=== PATIENT | male | born 1950 | race Caucasian/White ===

== ENCOUNTER → 2023-11-10 12:42 | Outpatient (BNVA) | payer MEDICARE, SELFPAY | PROVIDERS: Visit Provider Nurse Practitioner Gerontology | DX: N40.1 Benign prostatic hyperplasia with lower urinary tract symptoms (principal); R31.0 Gross hematuria | CPT/HCPCS: 51798; 81003; 99205 ==

== ENCOUNTER 2023-11-10 18:50 | Outpatient (REF) | payer MEDICARE, SELFPAY ==
[2023-11-10 17:27] LABS: Bilirubin Negative (Negative); Blood Trace-intact (Negative); Clarity Cloudy (Clear); Glucose Negative (Negative); Ketones Negative (Negative); Leukocyte Esterase Large (Negative); Nitrite Negative (Negative); Urobilinogen 0.2 mg/dL (Up to 0.2)
[2023-11-10 17:33] LABS: Bacteria Moderate HPF (Negative); C & S Indicated? C&S Done As Ordered; Casts Negative LPF (Negative); Crystals Negative HPF (Negative); Epithelial Cells Rare HPF (Negative); Mucus Negative (Negative); RBC 0-2 HPF (0-2); WBC >50 HPF (0-5)
== END 2023-11-10 18:51 | disposition home or self-care (01) ==
LOC: LBN 18:50
PROVIDERS: Visit Provider Nurse Practitioner Gerontology
DX: R31.9 Hematuria, unspecified (principal)
CPT/HCPCS: 87077; 81003; 81015; 87086; 87186

== ENCOUNTER → 2023-11-25 12:53 | Outpatient (BNVA) | payer MEDICARE, SELFPAY | PROVIDERS: Visit Provider Nurse Practitioner Gerontology | DX: R31.0 Gross hematuria (principal) | CPT/HCPCS: 81003; 99213 ==

== ENCOUNTER 2023-12-10 08:10 | Day surgery (SDC) | payer MEDICARE, SELFPAY ==
[2023-12-10 08:48] VITALS: BP 119/83; PULSE 60; RESP 16; TEMP 36.5; O2SAT 97
[2023-12-10] MEDS: Lactated Ringers 1,000 ML 80 ML IV (09:05)
--- NOTE | 2023-12-10 09:38 | W.PM.HP.N ---
Date of service: 12/10/23 Time of Service: 09:39 Assessment and Plan Assessment and plan (1) Gross hematuria: Status: Acute (2) UTI (urinary tract infection): Assessment and plan: We will complete his hematuria workup with a cystoscopy. We will be prepared to take a bladder biopsy or do a transurethral resection of any abnormal bladder mucosa. The cystoscopy will also help us determine possible etiologies for his urinary tract infection. History of Present Illness History of Present Illness Chief Complaint: Hematuria Narrative: This is a 73-year-old gentleman who has a history of gross hematuria. He was [place] at the time and took some antibiotics without obtaining a urine culture. When he returned to our area, he had a urine culture that was positive for E Coli. He was again treated with antibiotics. It is not clear if the hematuria was only associated with a UTI or preceded the UTI. He was evaluated with a CT urogram at an outside facility. The kidneys appeared normal but there were changes within the bladder that raised the question of carcinoma in situ. He presents now for cystoscopy and possible biopsy/transurethral resection of bladder tissue. Review of Systems Narrative: No fevers or chills Decreased hearing acuity. No dysphasia No diabetes or thyroid dysfunction No shortness of breath, cough or hemoptysis Hx atrial fibrillation. No chest pain No nausea, vomiting, hepatitis, ulcers, jaundice, diarrhea or constipation No seizures, strokes or peripheral neuropathy No bleeding disorders or anemia No gout PFSH All Active Problems (Updated 12/10/23 @ 09:43 by Talon Coronado MD) Gross hematuria (Acute) Tubular adenoma (Acute) Hearing loss (Acute) Erectile dysfunction (Acute) PSVT (paroxysmal supraventricular tachycardia) (Acute) Hypercholesterolemia (Acute) Medical History (Updated 12/10/23 @ 09:43 by Talon Coronado MD) UTI (urinary tract infection) Hx of hyperlipidemia Hx of hearing loss Hx of fracture of wrist with surgical repair A-fib Surgical History (Updated 12/10/23 @ 08:46 by Juana Perez) History of radiofrequency ablation procedure for cardiac arrhythmia Hx of appendectomy Hx of tonsillectomy Social History Smoking/Tobacco Use Status: Current-Occasional Tobacco Type: pipe Smoking risk assessment performed?: Yes Alcohol Intake: current Alcohol Intake frequency: 0-2 drinks per day Alcohol type: beer, wine and hard liquor Drug use: Never Substance use type: does not use Details: Pipe: t-1, alcohol: t-1, two drinks Housing: house Do you feel safe at home: Yes Do you feel safe in your relationship?: Yes Meds Allergies and Home Medications Allergies Allergy/AdvReac Type Severity Reaction Status Date / Time No Known Allergies Allergy Verified 12/10/23 08:37 Home Medications Medication Instructions Recorded Confirmed Type apixaban 5 mg tablet (Eliquis) 5 mg PO BID 09/08/23 12/09/23 History metoprolol succinate 25 mg 25 mg PO HS 09/08/23 12/10/23 History tablet,extended release 24 hr simvastatin 40 mg tablet 40 mg PO HS 09/08/23 12/10/23 History tamsulosin 0.4 mg capsule 0.4 mg PO DAILY 09/08/23 12/10/23 History dronedarone 400 mg tablet (Multaq) 400 mg PO BID 12/09/23 12/10/23 History Exam Const General: cooperative and no acute distress Neck Neck: supple Resp Effort & Inspection: normal respiratory effort Auscultation: clear to auscultation bilaterally Cardio Rate: regular rate Rhythm: regular rhythm GI Palpation: soft and no masses Neuro General: patient alert, patient awake and patient oriented x3 Results Last Vital Signs Temp 36.5 C 12/10/23 08:48 Pulse 60 12/10/23 08:48 Resp 16 12/10/23 08:48 BP 119/83 12/10/23 08:48 Pulse Ox 97 12/10/23 08:48 Time Spent Time spent with Patient: <40 minutes Time was spent: other
--- NOTE | 2023-12-10 09:53 | W.ANESPRE ---
General Info Date of Service Date Performed: 12/10/23 Height: 6 ft Weight: 99.6 kg Body Mass Index (BMI): 29.7 Surgical Procedure: Operation Date: 12/10/23 10:10 Proposed Procedure Side Surgeon p Cystoscopy w/Possible Transurethral Resection Bladder Tumor Talon Coronado MD Meds Allergies and Home Medications Allergies Allergy/AdvReac Type Severity Reaction Status Date / Time No Known Allergies Allergy Verified 12/10/23 08:37 Home Medication Medication Instructions Recorded apixaban 5 mg tablet (Eliquis) 5 mg PO BID 09/08/23 metoprolol succinate 25 mg 25 mg PO HS 09/08/23 tablet,extended release 24 hr simvastatin 40 mg tablet 40 mg PO HS 09/08/23 tamsulosin 0.4 mg capsule 0.4 mg PO DAILY 09/08/23 dronedarone 400 mg tablet (Multaq) 400 mg PO BID 12/09/23 Current Visit Medications: Current Medications Generic Name Dose Route Start Last Admin Trade Name Freq PRN Reason Stop Dose Admin Ringer's Solution 1,000 mls @ 80 mls/hr 12/10/23 06:00 12/10/23 09:05 IV 12/10/23 23:59 80 mls/hr INFUSION KEITH Administration Cefazolin Sodium/Dextrose 2 gm in 50 mls @ 100 mls/hr 12/10/23 06:00 Ancef Duplex IVPB 12/10/23 23:59 PREOP KEITH IV Miscellaneous Supplies 1 each 12/10/23 06:00 Iv Access IV 12/10/23 23:59 DIRECTED KEITH Sodium Chloride 0 ml 12/10/23 06:00 Normal Saline Flush 10 Ml Syr IV 12/10/23 23:59 PRN PRN Sodium Chloride 0 ml 12/10/23 06:00 Normal Saline 10 Ml Vial IJ 12/10/23 23:59 DIRECTED PRN Sterile Water 0 ml 12/10/23 06:00 Water,Injection,Sterile 10 Ml Vial IJ 12/10/23 23:59 DIRECTED PRN PFSH Active Problems Active Problems: Problem Status Onset Code Gross hematuria R31.0 Tubular adenoma D36.9 Hearing loss H91.90 Erectile dysfunction N52.9 PSVT (paroxysmal supraventricular tachycardia) I47.10 Hypercholesterolemia E78.00 Medical History Medical History (Updated 12/10/23 @ 09:43 by Talon Coronado MD) UTI (urinary tract infection) Hx of hyperlipidemia Hx of hearing loss Hx of fracture of wrist with surgical repair A-fib Surgical History Surgical History (Updated 12/10/23 @ 08:46 by Juana Perez) History of radiofrequency ablation procedure for cardiac arrhythmia Hx of appendectomy Hx of tonsillectomy Tobacco Smoking/Tobacco Use Status: Current-Occasional Tobacco Type: pipe Alcohol Alcohol Intake: current Alcohol intake frequency: 0-2 drinks per day Alcohol type: beer, wine and hard liquor Substance Use Substance use: Never Substance use type: does not use Details: Pipe: t-1, alcohol: t-1, two drinks Vital Signs and Lab Results Vital Signs Most Recent Vital Signs in EMR: Most Recent Vital Signs Temp Pulse Resp BP Pulse Ox 36.5 C 60 16 119/83 97 12/10/23 08:48 12/10/23 08:48 12/10/23 08:48 12/10/23 08:48 12/10/23 08:48 Lab Results Blood Type / Crossmatch: No Data to Display Complete Blood Count: No Data to Display Complete Metabolic Panel: No Data to Display Liver Function Panel: No Data to Display Coagulation Panel: No Data to Display Cardiac Panel: No Data to Display Arterial Blood Gas: No Data to Display Venous Blood Gas: No Data to Display Pancreas Panel: No Data to Display Thyroid Panel: No Data to Display Infectious Disease: No Data to Display Blood Cultures: No Data to Display Toxicology Panel: No Data to Display Anesthesia Assessment and Plan Anesthesia History Personal History: No History of Anesthesia Complications Family History: No Family History of Anesthesia Complications Exercise Tolerance Exercise Tolerance: Metabolic Equivalents>4 Pertinent Negatives Pertinent Negatives: No Symptoms of GERD, No Major Cardiovascular Symptoms or Complaints, No Major Pulmonary Symptoms or Complaints and No History of CVA/TIA Cardiac & Pulmonary Exam Cardiac Exam: Normal S1/S2 Heart Sounds Pulmonary Exam: Clear Bilateral Breath Sounds Implantable Cardiac Device Does patient have a Pacemaker or an ICD?: No Airway Exam Known Difficult Airway: No Mallampati Class: 3 Mouth Opening: Normal (> 3cm) Thyromental Distance: Greater than 3 cm Neck Range of Motion: Full ROM Neck Circumference: Normal Teeth Condition: Normal Dentition (temporary bridge tooth 11) ASA Classification ASA Score: ASA 2 Emergency Case?: No NPO Status NPO Status: NPO Clears >2 hours, Solids >8 hours Anesthesia Plan Resuscitation Status: Full Code Anesthesia Technique: General Anesthesia Airway Planned: Natural Airway Monitors Used: Standard Monitors
[2023-12-10 09:54] VITALS: BMI 29.7
[2023-12-10] MEDS: ceFAZolin 2 GM/50 ML BAG IVPB (10:18)
[2023-12-10] MEDS: Lidocaine 2% Jelly 6 ML SYR (10:20)
--- NOTE | 2023-12-10 10:25 | PAPNONF_PTH ---
PATIENT: [employer] Galeas LOC: [facility] U#:[id number] AGE/SX: 73/M ROOM: RE12/10/[address]: Talon Coronado MD : 1950 BED: DIS: 12/10/2023 SPEC #: [id number] RECD: 12/10/23 12:51 STATUS: CHAUNCEY REQ #: [id number] TALYA: 12/10/23 10:[address]: Talon Coronado DEPT: [facility] Cytology RECD BY: Daja Ferguson ENTERED: 12/10/23 12:52 SP TYPE: PEDRO YEUNG DR: Donnie Fields Tissues: 1 - BODY FLUID CYTO(SPUTUM/URINE)[facility] Procedures: BODY FLUID CYTO(URINE/SPUTUM) Comments: [id number] (REFRIGERATED) (NR=575 ml, 50ml URINE & 30ml CYTOLYE ADDED IN 2 CONTAINERS)
--- NOTE | 2023-12-10 10:32 | W.PM.DSUDISC ---
Date of service: 12/10/23 Time of Service: 10:32 Discharge Plan Disposition Patient Disposition: Home Discharge Details Reason For Visit: cystoscopy Attending Provider: Talon Coronado Primary Care Provider: Donnie Fields Home Meds and New Rx's Prescriptions: No Action tamsulosin 0.4 mg capsule 0.4 mg PO DAILY simvastatin 40 mg tablet 40 mg PO HS metoprolol succinate 25 mg tablet extended release 24 hr 25 mg PO HS Eliquis 5 mg tablet 5 mg PO BID Multaq 400 mg tablet 400 mg PO BID Rx Instructions: must administer with a meal/food Discharge Instructions Additional Instructions: may restart eliquis when no blood is visible in urine followup 1 to 2 weeks for cytology report - may be phone call if easier for patient Discharge Orders Discharge Orders: Discharge Order (Routine); Ordered 12/10/23 Ordered By: Talon Coronado DS: Diagnosis Discharge Diagnosis (1) Gross hematuria: Status: Acute (2) UTI (urinary tract infection):
--- NOTE | 2023-12-10 10:34 | W.PM.OP ---
Date of service: 12/10/23 Time of Service: 10:34 Operative Note Operative Note DATE OF PROCEDURE: 12/10/23 PRE-OP DIAGNOSIS: Gross hematuria POST-OP DIAGNOSIS: same PROCEDURE: cystoscopy SURGEON: Talon Coronado ANESTHESIA TYPE: Local By Surgeon and General:No Airway Refer to Anesthesia Record ESTIMATED BLOOD LOSS: 5 PATHOLOGY: other (urine for cytology) COMPLICATIONS: None Patient was transported to: same day Patient's condition: stable Implants: none Indications: This is a 73-year-old gentleman who developed gross hematuria while he was on an overseas trip. He did not have access to a clinic or laboratory, but he did have access to antibiotics. He took a course of Bactrim and the gross hematuria improved. When he returned to our area, he was seen by his primary care provider. He was started on an alpha-zackery. A CT urogram was obtained and he was referred to urology. The urogram showed normal upper tracts with some thickening of the bladder wall. There was specific concern from the radiologist that there may be carcinoma in situ. He again had a positive urine culture with E. coli grown. He was treated with another round of antibiotics and all of his symptoms improved. He comes in now for cystoscopy to evaluate his lower urinary tract Findings: no bladder tumor Procedure Description: The patient was given preoperative antibiotics and brought to the operating room on 12/10/2023. After successful induction of general anesthesia, he was placed in the dorsal lithotomy position. His genitalia was prepped and draped. 2% Xylocaine jelly was instilled into the urethra to act as a local anesthetic. A 22 [place] rigid cystoscope was passed through the urethra into the bladder. The urethra was inspected with a 30 degree lens. The pendulous, bulbar and membranous urethra was all appeared normal with no strictures. The prostatic urethra showed an elevated bladder neck but only minimal lateral lobe enlargement. No median lobe was identified. The bladder neck was entered and the bladder mucosa was inspected. Both ureteral orifices appeared normal with no blood coming from either side. No papillary or nodular lesions were seen within the bladder. The bladder findings were confirmed on reinspection of the bladder using a 70 degree lens. Because of the concern for carcinoma in situ, we elected to check a urine cytology. Bladder washings with saline were obtained and sent to the lab. The patient tolerated this procedure well with no complications. The bladder was drained and the cystoscope was removed. He was taken back to the day surgery unit in stable condition.
[2023-12-10 10:40] VITALS: BP 92/67; PULSE 56; RESP 16; TEMP 36.4; O2SAT 94
--- NOTE | 2023-12-10 11:03 | W.ANESPOSTOP ---
Postoperative Evaluation Date, Time and Location Date Performed: 12/10/23 Time Performed: 10:40 Patient Location: Day Surgery Unit Vital Signs Most Recent Imported Vital Signs: Most Recent Vital Signs Temp Pulse Resp BP Pulse Ox 36.4 C L 56 L 16 92/67 L 94 12/10/23 10:40 12/10/23 10:40 12/10/23 10:40 12/10/23 10:40 12/10/23 10:40 Pain Score Most Recent Pain Score: Most Recent Pain Score Pain Level 0 12/10/23 10:40 Assessment Mental Status: Awake (Alert & Oriented to Patient Baseline) Airway and Respiratory Function: Patent airway with normal (patient baseline) respiratory exam Cardiovascular Function: Hemodynamically Stable Hydration Status: Adequately Hydrated Nausea & Vomiting: No Nausea or Vomiting Pain: Pt. Denies Any Pain Peripheral Nerve Block: Patient did not receive a nerve block
[2023-12-10 11:13] VITALS: BP 106/73; PULSE 50; RESP 18; TEMP 36.2; O2SAT 96
[2023-12-10] MEDS: Phenazopyridine 200 MG TAB PO (11:13)
== END 2023-12-10 11:40 | disposition home or self-care (01) ==
PROVIDERS: PCP Family Medicine; Visit Provider Urology
PROC: 0TBB8ZZ Excision of Bladder, Via Natural or Artificial Opening Endoscopic (ICD-10-PCS; CPT 52000; principal; 2023-12-10 10:00)
DX: R31.0 Gross hematuria (principal); I47.19 Other supraventricular tachycardia; E78.00 Pure hypercholesterolemia, unspecified; R82.89 Other abnormal findings on cytological and histological examination of urine
CPT/HCPCS: 52000; 88104; J0690; J1100; J1885; J2001; J2371; J2405; J2704

== ENCOUNTER → 2023-12-29 13:59 | Outpatient (BNVA) | payer MEDICARE, SELFPAY | PROVIDERS: PCP Family Medicine; Referring Provider Family Medicine; Visit Provider Urology | DX: R31.0 Gross hematuria (principal) ==

== ENCOUNTER → 2024-01-04 15:13 | Outpatient (BNVA) | payer MEDICARE, SELFPAY | PROVIDERS: PCP Family Medicine; Referring Provider Family Medicine; Visit Provider Urology | DX: R31.0 Gross hematuria (principal) | CPT/HCPCS: 99443 ==